=== PATIENT | female | born 1990 | race American Indian/Alaskan Native ===

== ENCOUNTER 2019-01-25 13:42 | Emergency (ER) | payer BC, OTHER ==
[2019-01-25 13:49] VITALS: BP 148/91
--- NOTE | 2019-01-25 13:52 | Event Note ---
ED Screening Note Date of service: 01/25/19 Time: 13:47 ED Screening Note: This is a 28 y.o. F. that presents to the ER with pain on left side s/p fall. Patient states she slid down a few steps at the bottom of her stairs at home 30 minutes to 1 hour [employer]. Denies loc, chest pain, This initial assessment/diagnostic orders/clinical plan/treatment(s) is/are subject to change based on patients health status, clinical progression and re- assessment by fellow clinical providers in the ED. Further treatment and workup at subsequent clinical providers discretion. Patient/guardian urged not to elope from the ED as their condition may be serious if not clinically assessed and managed. Initial orders include: XR L-spine and left femur
--- NOTE | 2019-01-25 14:56 | XRay Report ---
EXAMINATION: Lumbosacral radiograph series, 3 views, 01/25/2019 CLINICAL INFORMATION: Low back pain and coccyx pain after fall COMPARISON: None. FINDINGS: There is normal alignment of the lumbar vertebral bodies. Vertebral body height and alignme nt appears well maintained. No significant bony degenerative changes are noted. There is no evidence of displaced coccyx fracture. IMPRESSION: No radiographic evidence of acute bony abnormality of the lumbar spine or coccyx. Signer Name: Tash Garg MD Signed: 01/25/2019 2:52 PM Workstation Name: [id number]
--- NOTE | 2019-01-25 15:00 | XRay Report ---
EXAMINATION: Left femur radiograph, 2 views, 01/25/2019 CLINICAL INFORMATION: Left leg pain after trauma. Fall. COMPARISON: No relevant prior studies are available for comparison FINDINGS: There is no evidence of acute bony fracture of the left femur. Signer Name: Tash Garg MD Signed: 01/25/2019 2:55 PM Workstation Name: [id number]
--- NOTE | 2019-01-25 15:56 | Emergency Department Report ---
ED Lower Extremity HPI - General Chief Complaint: Extremity Injury, Lower Stated Complaint: FELL DOWNSTAIRS/HURT LEG Time Seen by Provider: 01/25/19 13:47 Source: patient Mode of arrival: Ambulatory Limitations: No Limitations - History of Present Illness Initial Comments: Pt reports that this AM, she slipped and fell down a few stairs, hitting her bottom and L leg. Pain to L leg primarily above the knee. No numbness, able to ambulate. MD Complaint: thigh injury -: Sudden, hour(s) Injury: Thigh: Left Type of Injury: blunt Place: home Severity: moderate Severity scale (0 -10): 5 Improves With: immobilization Worsens With: movement Context: fall Associated Symptoms: denies: swelling, numbness, tingling - Related Data Previous Rx's Medication Instructions Recorded Last Taken Type Ondansetron [Zofran Odt] 4 mg PO Q8HR #10 tab.rapdis 12/19/18 Unknown Rx traMADol [Ultram] 50 mg PO Q6HR PRN #12 tablet 12/19/18 Unknown Rx Ibuprofen [Motrin] 600 mg PO Q8H PRN #15 tablet 01/25/19 Unknown Rx Allergies Allergy/AdvReac Type Severity Reaction Status Date / Time No Known Allergies Allergy Unverified 12/19/18 10:25 ED Review of Systems ROS: Stated complaint: FELL DOWNSTAIRS/HURT LEG Other details as noted in HPI Comment: All other systems reviewed and negative Musculoskeletal: as per HPI ED Past Medical Hx - Past Medical History Previous Medical History?: No - Surgical History Past Surgical History?: No - Social History Smoking Status: Never Smoker Substance Use Type: None - Medications Home Medications: Home Medications Medication Instructions Recorded Confirmed Last Taken Type Ondansetron [Zofran Odt] 4 mg PO Q8HR #10 tab.rapdis 12/19/18 Unknown Rx traMADol [Ultram] 50 mg PO Q6HR PRN #12 tablet 12/19/18 Unknown Rx Ibuprofen [Motrin] 600 mg PO Q8H PRN #15 tablet 01/25/19 Unknown Rx ED Physical Exam - General Limitations: No Limitations General appearance: alert, in no apparent distress - Head Head exam: Present: atraumatic, normocephalic - Eye Eye exam: Present: normal appearance - ENT ENT exam: Present: mucous membranes moist - Neck Neck exam: Present: normal inspection - Respiratory Respiratory exam: Absent: respiratory distress - Extremities Exam Extremities exam: Present: normal inspection, normal capillary refill, other (some tenderness to posterior L thigh, knee normal, ankle normal, hip normal). Absent: calf tenderness - Back Exam Back exam: Present: normal inspection - Neurological Exam Neurological exam: Present: alert, oriented X3 - Psychiatric Psychiatric exam: Present: normal affect, normal mood - Skin Skin exam: Present: warm, dry, intact, normal color. Absent: rash ED Course Vital Signs 01/25/19 13:48 Temperature 98.4 F Pulse Rate 76 Respiratory 18 Rate Blood Pressure 148/91 [Left] O2 Sat by Pulse 100 Oximetry ED Lower Extremity MDM - Radiology Data Radiology results: report reviewed negative L spine and femur - Medical Decision Making leg pain after fall on stairs benign exam imaging neg for fx NV intact fu pcp - Differential Diagnosis contusion, sprain, doubt fracture Critical care attestation.: If time is entered above; I have spent that time in minutes in the direct care of this critically ill patient, excluding procedure time. ED Disposition Clinical Impression: Contusion of left leg Qualifiers: Encounter type: initial encounter Qualified Code(s): S80.12XA - Contusion of left lower leg, initial encounter Disposition: DC-01 TO HOME OR SELFCARE Is pt being admited?: No Condition: Good Instructions: Contusion in Adults (ED) Prescriptions: Ibuprofen [Motrin] 600 mg PO Q8H PRN #15 tablet PRN Reason: Pain Referrals: PRIMARY CARE, [Primary Care Provider] - 3-5 Days Time of Disposition: 15:55
== END 2019-01-25 16:02 | disposition home or self-care (01) ==
LOC: ED 13:42
DX: S80.12XA Contusion of left lower leg, initial encounter (principal); M54.5 Low back pain; Z79.1 Long term (current) use of non-steroidal anti-inflammatories (NSAID); Z79.899 Other long term (current) drug therapy; W10.8XXA Fall (on) (from) other stairs and steps, initial encounter; Y93.01 Activity, walking, marching and hiking; Y92.098 Other place in other non-institutional residence as the place of occurrence of the external cause; Y99.8 Other external cause status
CPT/HCPCS: 72100

== ENCOUNTER 2019-01-29 09:13 | Emergency (ER) | payer BC, OTHER ==
[2019-01-29 09:22] VITALS: BP 151/88
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
[2019-01-29 10:19] LABS: Bilirubin,Urine NEG (Negative); Blood,Urine LG (Negative); Color,Urine Yellow (Yellow); Mucus,Urine FEW /HPF; Urobilinogen,Urine < 2.0 mg/dL (<2.0)
[2019-01-29 10:20] LABS: RBC,Urine > 180.0 /HPF (0.0-6.0)
[2019-01-29] MEDS ORDERED: predniSONE 20 MG TAB PO ONE (10:20)
[2019-01-29] MEDS ORDERED: KETOROLAC 60 MG/2 ML INJ IM ONE (10:20)
[2019-01-29 10:46] LABS: HCG Qualitative,Urine Negative (Negative)
== END 2019-01-29 11:23 | disposition home or self-care (01) ==
LOC: ED 09:13
DX: S39.012A Strain of muscle, fascia and tendon of lower back, initial encounter (principal); Z79.899 Other long term (current) drug therapy; Z79.1 Long term (current) use of non-steroidal anti-inflammatories (NSAID); V89.2XXA Person injured in unspecified motor-vehicle accident, traffic, initial encounter; Y93.89 Activity, other specified; Y92.89 Other specified places as the place of occurrence of the external cause; Y99.8 Other external cause status
CPT/HCPCS: 81001; 81025; 87086; 96372; 99283; J1885; J7512

== ENCOUNTER 2019-04-22 21:31 | Emergency (ER) | payer BC ==
[2019-04-22 23:52] VITALS: BP 137/75
[2019-04-23 01:55] LABS: Bilirubin,Urine NEG (Negative); Blood,Urine NEG (Negative); Color,Urine Yellow (Yellow); Protein,Urine <15 mg/dL mg/dL (Negative); Urobilinogen,Urine < 2.0 mg/dL (<2.0)
[2019-04-23 02:11] LABS: HCG Qualitative,Urine Negative (Negative)
== END 2019-04-23 01:54 | disposition left against medical advice (07) ==
LOC: ED 21:31
DX: M54.9 Dorsalgia, unspecified (principal); Z53.21 Procedure and treatment not carried out due to patient leaving prior to being seen by health care provider
CPT/HCPCS: 81001; 81025

== ENCOUNTER 2021-03-28 14:16 | Emergency (ER) | payer BC ==
[2021-03-28 16:02] LABS: Basophils % (Auto) 0.5 % (0.0-1.8); Eosinophils # (Auto) 0.1 K/mm3 (0.0-0.4); Eosinophils % (Auto) 1.1 % (0.0-4.3); Hematocrit 36.2 % (30.3-42.9); Hemoglobin 11.4 gm/dl (10.1-14.3); Lymphocytes # (Auto) 2.3 K/mm3 (1.2-5.4); Lymphocytes % (Auto) 37.4 % (13.4-35.0); Mean Corpuscular HGB Conc 32 % (30-34); Mean Corpuscular Volume 92 fl (79-97); Monocytes # (Auto) 0.4 K/mm3 (0.0-0.8); Monocytes % (Auto) 7.4 % (0.0-7.3); Platelet Count 273 K/mm3 (140-440); Red Blood Count 3.94 M/mm3 (3.65-5.03); Red Cell Distribution Width 15.1 % (13.2-15.2)
[2021-03-28 16:15] LABS: Alanine Aminotransferase 27 units/L (7-56); Albumin 3.7 g/dL (3.9-5); BUN/Creatinine Ratio 19; Blood Urea Nitrogen 15 mg/dL (7-17); Hemolysis Index 41
--- NOTE | 2021-03-28 17:11 | Ultrasound Report ---
US OB transvaginal, US OB <= 14 weeks fetus INDICATION / CLINICAL INFORMATION: with spotting. COMPARISON: None available. FINDINGS: Transabdominal and transvaginal imaging was performed. Gestational sac is noted with yolk sac and pole. On transvaginal imaging, crown-rump length is 1.07 cm (7 weeks, 1 day). heart rate is 140. There is minimal subchorionic hemorrhage evidenced by crescentic hypoechogenicity adjacent to the ges tational sac (as seen on transvaginal image 14). Maternal ovaries are unremarkable. No free fluid is seen. IMPRESSION: 1. Single viable intrauterine with sonographic gestational age of 7 weeks, 1 day. Small sub chorionic hemorrhage. Signer Name: Chandan Hamm MD Signed: 03/28/2021 5:06 PM Workstation Name: [id number]
[2021-03-28 18:43] VITALS: BP 125/74
--- NOTE | 2021-03-28 19:14 | Emergency Department Report ---
ED HPI - General Chief complaint: Vaginal Bleeding Stated complaint: Time Seen by Provider: 03/28/21 17:18 Source: patient Mode of arrival: Ambulatory Limitations: No Limitations - History of Present Illness Initial comments: Patient is a 31-year-old female presents emergency room with complaints of lower abdominal cramping that began 2 days ago. She reports that she is also been having spotting. She denies any heavy bleeding or passing clots. She denies any fever, nausea, vomiting, diarrhea, urinary symptoms, vaginal discharge. She states that her last menstrual cycle was 02/06/2021. No allergies to medications. - Related Data Previous Rx's Medication Instructions Recorded Last Taken Type Ondansetron [Zofran Odt] 4 mg PO Q8HR #10 tab.rapdis 12/19/18 Unknown Rx traMADoL [Ultram] 50 mg PO Q6HR PRN #12 tablet 12/19/18 Unknown Rx Ibuprofen [Motrin] 600 mg PO Q8H PRN #15 tablet 01/25/19 Unknown Rx Cyclobenzaprine [Flexeril] 10 mg PO QHS PRN #10 tablet 01/29/19 Unknown Rx Naproxen 500 mg PO Q8H PRN #20 tablet 01/29/19 Unknown Rx Allergies Allergy/AdvReac Type Severity Reaction Status Date / Time No Known Allergies Allergy Verified 03/28/21 18:45 ED Review of Systems ROS: Stated complaint: Other details as noted in HPI Comment: All other systems reviewed and negative ED Past Medical Hx - Past Medical History Hx Diabetes: Yes (gestational) - Surgical History Additional Surgical History: D&C, laprascopy - Social History Smoking Status: Never Smoker Substance Use Type: None - Medications Home Medications: Home Medications Medication Instructions Recorded Confirmed Last Taken Type Ondansetron [Zofran Odt] 4 mg PO Q8HR #10 tab.rapdis 12/19/18 03/28/21 Unknown Rx traMADoL [Ultram] 50 mg PO Q6HR PRN #12 tablet 12/19/18 03/28/21 Unknown Rx Ibuprofen [Motrin] 600 mg PO Q8H PRN #15 tablet 01/25/19 03/28/21 Unknown Rx Cyclobenzaprine [Flexeril] 10 mg PO QHS PRN #10 tablet 01/29/19 03/28/21 Unknown Rx Naproxen 500 mg PO Q8H PRN #20 tablet 01/29/19 03/28/21 Unknown Rx ED Physical Exam - General Limitations: No Limitations General appearance: alert, in no apparent distress - Head Head exam: Present: atraumatic, normocephalic - Eye Eye exam: Present: normal appearance - ENT ENT exam: Present: mucous membranes moist - Respiratory Respiratory exam: Present: normal lung sounds bilaterally. Absent: respiratory distress, wheezes, rales, rhonchi, stridor, chest wall tenderness, accessory muscle use, decreased breath sounds, prolonged expiratory - Cardiovascular Cardiovascular Exam: Present: regular rate, normal rhythm, normal heart sounds. Absent: systolic murmur, diastolic murmur, rubs, gallop - GI/Abdominal GI/Abdominal exam: Present: soft, normal bowel sounds. Absent: distended, tenderness, guarding, rebound, rigid - Neurological Exam Neurological exam: Present: alert, oriented X3 - Psychiatric Psychiatric exam: Present: normal affect, normal mood - Skin Skin exam: Present: warm, dry, intact ED Course Vital Signs 03/28/21 03/28/21 03/28/21 15:15 18:41 18:42 Temperature 98.3 F 98.7 F Pulse Rate 70 75 Respiratory 18 18 Rate Blood Pressure 145/77 Blood Pressure 125/74 [Left] O2 Sat by Pulse 100 99 99 Oximetry 03/28/21 18:43 Temperature 98.7 F Pulse Rate 75 Respiratory 18 Rate Blood Pressure 125/74 Blood Pressure [Left] O2 Sat by Pulse 99 Oximetry ED Medical Decision Making - Lab Data Result diagrams: 03/28/21 15:43 03/28/21 15:43 Lab Results 03/28/21 03/28/21 03/28/21 Range/Units 15:43 15:43 15:43 WBC 6.1 (4.5-11.0) K/mm3 RBC 3.94 (3.65-5.03) M/mm3 Hgb 11.4 (10.1-14.3) gm/dl Hct 36.2 (30.3-42.9) % MCV 92 (79-97) fl MCH 29 (28-32) pg MCHC 32 (30-34) % RDW 15.1 (13.2-15.2) % Plt Count 273 (140-440) K/mm3 Lymph % (Auto) 37.4 H (13.4-35.0) % [place] % (Auto) 7.4 H (0.0-7.3) % Eos % (Auto) 1.1 (0.0-4.3) % Baso % (Auto) 0.5 (0.0-1.8) % Lymph # (Auto) 2.3 (1.2-5.4) K/mm3 [place] # (Auto) 0.4 (0.0-0.8) K/mm3 Eos # (Auto) 0.1 (0.0-0.4) K/mm3 Baso # (Auto) 0.0 (0.0-0.1) K/mm3 Seg Neutrophils % 53.6 (40.0-70.0) % Seg Neutrophils # 3.2 (1.8-7.7) K/mm3 Sodium 134 L (137-145) mmol/L Potassium 4.2 (3.6-5.0) mmol/L Chloride 101.2 (98-107) mmol/L Carbon Dioxide 19 L (22-30) mmol/L Anion Gap 18 mmol/L BUN 15 (7-17) mg/dL Creatinine 0.8 (0.6-1.2) mg/dL Estimated GFR > 60 ml/min BUN/Creatinine Ratio 19 % Glucose 101 H (65-100) mg/dL Calcium 9.0 (8.4-10.2) mg/dL Total Bilirubin < 0.20 (0.1-1.2) mg/dL AST 20 (5-40) units/L ALT 27 (7-56) units/L Alkaline Phosphatase 45 (35-129) units/L Total Protein 7.2 (6.3-8.2) g/dL Albumin 3.7 L (3.9-5) g/dL Albumin/Globulin Ratio 1.1 % HCG, Quant 52337 H (0-4) mIU/mL Blood Type Antibody Screen Screen Ord Rhogam Gestat Weeks WEEKS 03/28/21 Range/Units 17:24 WBC (4.5-11.0) K/mm3 RBC (3.65-5.03) M/mm3 Hgb (10.1-14.3) gm/dl Hct (30.3-42.9) % MCV (79-97) fl MCH (28-32) pg MCHC (30-34) % RDW (13.2-15.2) % Plt Count (140-440) K/mm3 Lymph % (Auto) (13.4-35.0) % [place] % (Auto) (0.0-7.3) % Eos % (Auto) (0.0-4.3) % Baso % (Auto) (0.0-1.8) % Lymph # (Auto) (1.2-5.4) K/mm3 [place] # (Auto) (0.0-0.8) K/mm3 Eos # (Auto) (0.0-0.4) K/mm3 Baso # (Auto) (0.0-0.1) K/mm3 Seg Neutrophils % (40.0-70.0) % Seg Neutrophils # (1.8-7.7) K/mm3 Sodium (137-145) mmol/L Potassium (3.6-5.0) mmol/L Chloride (98-107) mmol/L Carbon Dioxide (22-30) mmol/L Anion Gap mmol/L BUN (7-17) mg/dL Creatinine (0.6-1.2) mg/dL Estimated GFR ml/min BUN/Creatinine Ratio % Glucose (65-100) mg/dL Calcium (8.4-10.2) mg/dL Total Bilirubin (0.1-1.2) mg/dL AST (5-40) units/L ALT (7-56) units/L Alkaline Phosphatase (35-129) units/L Total Protein (6.3-8.2) g/dL Albumin (3.9-5) g/dL Albumin/Globulin Ratio % HCG, Quant (0-4) mIU/mL Blood Type O NEGATIVE Antibody Screen Negative Screen Negative Ord Rhogam Gestat Weeks >=11 WEEKS Vital Signs 03/28/21 03/28/21 03/28/21 15:15 18:41 18:42 Temperature 98.3 F 98.7 F Pulse Rate 70 75 Respiratory 18 18 Rate Blood Pressure 145/77 Blood Pressure 125/74 [Left] O2 Sat by Pulse 100 99 99 Oximetry 03/28/21 18:43 Temperature 98.7 F Pulse Rate 75 Respiratory 18 Rate Blood Pressure 125/74 Blood Pressure [Left] O2 Sat by Pulse 99 Oximetry - Radiology Data Radiology results: report reviewed Ordering Physician: KEYANNA BROWN Date of Service: 03/28/21 Procedure(s): US OB <= 14 weeks fetus Accession Number(s): [id number] cc: KEYANNA BROWN US OB transvaginal, US OB <= 14 weeks fetus INDICATION / CLINICAL INFORMATION: with spotting. COMPARISON: None available. FINDINGS: Transabdominal and transvaginal imaging was performed. Gestational sac is noted with yolk sac and pole. On transvaginal imaging, crown-rump length is 1.07 cm (7 weeks, 1 day). heart rate is 140. There is minimal subchorionic hemorrhage evidenced by crescentic hypoechogenici ty adjacent to the gestational sac (as seen on transvaginal image 14). Maternal ovaries are unremarkable. No free fluid is seen. IMPRESSION: 1. Single viable intrauterine with sonographic gestational age of 7 weeks, 1 day. Small subchorionic hemorrhage. Signer Name: Chandan Hamm MD Signed: 03/28/2021 5:06 PM Workstation Name: [id number] Transcribed By: BRANDIN Dictated By: Chandan Hamm MD Electronically Authenticated By: Chandan Hamm MD Signed Date/Time: 03/28/211705 DD/ 03 TD/TT: - Medical Decision Making Patient is a 31-year-old female presents emergency room with complaints of lower abdominal cramping that began 2 days ago. She reports that she is also been having spotting. She denies any heavy bleeding or passing clots. She denies any fever, nausea, vomiting, diarrhea, urinary symptoms, vaginal discharge. She states that her last menstrual cycle was 02/06/2021. No allergies to medications. vss. [place] [address]. h/h is normal. pt is Rh negative, pt given rhogam while in the ED without any complications. OB US: 1. Single viable intrauterine with sonographic gestational age of 7 weeks, 1 day. Small subchorionic hemorrhage. Discussed all findings with patient and answer questions. Advised patient may take Tylenol as needed for any discomfort. Please take a vitamin [id number]. Increase your fluid intake. Practice pelvic rest. Follow-up with [facility]. You need to have a repeat hCG quant in 2 to 3 days. Return to emergency room for any new or worsening symptoms. Critical care attestation.: If time is entered above; I have spent that time in minutes in the direct care of this critically ill patient, excluding procedure time. ED Disposition Clinical Impression: Early stage of , Need for rhogam due to Rh negative mother Subchorionic hematoma in first trimester Qualifiers: Fetus number: single or unspecified fetus Qualified Code(s): O41.8X10 - Other specified disorders of amniotic fluid and membranes, first trimester, not applicable or unspecified; O46.8X1 - Other antepartum hemorrhage, first trimester Disposition: 01 HOME / SELF CARE / HOMELESS Is pt being admited?: No Does the pt Need Aspirin: No Condition: Stable Instructions: Subchorionic Hematoma, Vaginal Bleeding During , First Trimester, [id number] Additional Instructions: may take Tylenol as needed for any discomfort. Please take a vitamin [id number]. Increase your fluid intake. Practice pelvic rest. Follow-up with [facility] [employer] [facility]. You need to have a repeat hCG quant in 2 to 3 days. Return to emergency room for any new or worsening symptoms. Referrals: SUKHDEEP NEWBERRY MD [Staff Physician] - 2-3 Days PRIMARY CARE, [Primary Care Provider] - 2-3 Days Time of Disposition: 19:16 Print Language: CROATIAN
== END 2021-03-28 20:29 | disposition home or self-care (01) ==
LOC: ED 14:16
DX: O20.8 Other hemorrhage in early pregnancy (principal); Z3A.01 Less than 8 weeks gestation of pregnancy; Z79.899 Other long term (current) drug therapy
CPT/HCPCS: 36415; 76801; 76817; 80053; 84702; 85025; 85461; 86850; 86900; 86901; 96372; 99284; J2790